=== PATIENT | male | born 1950 | race Caucasian/White ===

== ENCOUNTER 2016-11-05 10:40 | Emergency (ER) | payer MEDICARE ==
[~2016-11-05] VITALS: Ht 170.2 cm; Wt 84.0 kg
[2016-11-05 10:51] VITALS: BP 107/64; PULSE 106; RESP 17; TEMP 98.4; O2SAT 95
--- NOTE | 2016-11-05 10:51 | PD ---
HPI Chief Complaint: fall Time Seen by Provider: 10:47 Travel History International Travel<30 days: No Contact w/Intl Traveler<30days: No Traveled to known affect area: No History of Present Illness HPI 66-year-old male with history of recent Parkinson's disorder diagnosis, presents to the ER today brought in by EMS because he has had multiple recent falls, he states that he fell again today when he got out of bed, got dizzy and states that his leg gave out from underneath him. He states that he had also fallen about a few weeks ago and hit his head but did not get checked out. He denies any chest pains, trouble breathing, vomiting, fevers, or any other issues. He does complain of left elbow pain this time. Modifying Factors: None Associated Signs & Symptoms: Dizziness, falls Risk Factors: Parkinson's disorder PFSH Social History Tobacco Use: No Allergies-Medications (Allergen,Severity, Reaction): Coded Allergies: No Known Allergies (Unverified , 11/05/16) Reported Meds & Prescriptions Reported Meds & Active Scripts Active Reported Vicodin (Hydrocodone-Acetaminophen) 5-300 Mg Tab 1 Tab PO Q6H PRN K-Tab (Potassium Chloride) 10 Meq Tab 10 Meq PO DAILY Atenolol 25 Mg Tab 25 Mg PO BID Doxepin (Doxepin HCl) 25 Mg Cap 25 Mg PO HS Seroquel (Quetiapine Fumarate) 25 Mg Tab 25 Mg PO DAILY Review of Systems Except as stated in HPI: all other systems reviewed are Neg Physical Exam Narrative GENERAL: Well-nourished, well-developed elderly white male patient who is awake , alert, not in acute distress, notable for aphasia which he states old for several years. SKIN: Warm and dry. HEAD: Normocephalic. EYES: No scleral icterus. No injection or drainage. NECK: Supple, trachea midline. CARDIOVASCULAR: Regular rate and rhythm without murmurs, gallops, or rubs. RESPIRATORY: Breath sounds equal bilaterally. No accessory muscle use. GASTROINTESTINAL: Abdomen soft, non-tender, nondistended. Pelvis: Stable and nontender to palpation bilaterally. Nontender range of motion of both hips. MUSCULOSKELETAL: No cyanosis, or edema. BACK: Nontender without obvious deformity. No CVA tenderness. EXTREMITIES: No clubbing, cyanosis, or edema. No joint tenderness, effusion, or edema noted. Data Data Last Documented VS Vital Signs Date Time Temp Pulse Resp B/P Pulse Ox O2 Delivery O2 Flow Rate FiO2 11/05/16 11:29 94 17 91/60 116 11/05/16 11:04 100 Room Air 11/05/16 10:51 98.4 Orders Electrocardiogram (11/05/16 10:47) Complete Blood Count With Diff (11/05/16 10:47) Comprehensive Metabolic Panel (11/05/16 10:47) Magnesium (Mg) (11/05/16 10:47) Ckmb (Isoenzyme) Profile (11/05/16 10:47) Troponin I (11/05/16 10:47) Act Partial Throm Time (Ptt) (11/05/16 10:47) Prothrombin Time / Inr (Pt) (11/05/16 10:47) Urinalysis - C+S If Indicated (11/05/16 10:47) Chest, Single Ap (11/05/16 10:47) Ct Brain W/O Iv Contrast(Rout) (11/05/16 10:47) Ecg Monitoring (11/05/16 10:47) Iv Access Insert/Monitor (11/05/16 10:47) Oximetry (11/05/16 10:47) Orthostatic Vital Signs (11/05/16 10:47) Elbow, Complete (4 Vws) (11/05/16 10:51) CKMB (11/05/16 10:55) CKMB% (11/05/16 10:55) Sodium Chlorid 0.9% 500 Ml Inj (Ns 500 M (11/05/16 11:45) Cath For Specimen (11/05/16 11:55) Labs Laboratory Tests Test 11/05/16 11/05/16 10:55 12:05 White Blood Count 14.4 TH/MM3 Red Blood Count 4.66 MIL/MM3 Hemoglobin 14.0 GM/DL Hematocrit 41.2 % Mean Corpuscular Volume 88.3 FL Mean Corpuscular Hemoglobin 30.1 PG Mean Corpuscular Hemoglobin 34.1 % Concent Red Cell Distribution Width 13.5 % Platelet Count 276 TH/MM3 Mean Platelet Volume 7.6 FL Neutrophils (%) (Auto) 88.5 % Lymphocytes (%) (Auto) 6.4 % Monocytes (%) (Auto) 2.7 % Eosinophils (%) (Auto) 0.8 % Basophils (%) (Auto) 1.6 % Neutrophils # (Auto) 12.8 TH/MM3 Lymphocytes # (Auto) 0.9 TH/MM3 Monocytes # (Auto) 0.4 TH/MM3 Eosinophils # (Auto) 0.1 TH/MM3 Basophils # (Auto) 0.2 TH/MM3 CBC Comment DIFF FINAL Differential Comment Prothrombin Time 11.2 SEC Prothromb Time International 1.0 RATIO Ratio Activated Partial 26.3 SEC Thromboplast Time Sodium Level 136 MEQ/L Potassium Level 4.4 MEQ/L Chloride Level 98 MEQ/L Carbon Dioxide Level 22.0 MEQ/L Anion Gap 16 MEQ/L Blood Urea Nitrogen 16 MG/DL Creatinine 1.10 MG/DL Estimat Glomerular Filtration 67 ML/MIN Rate Random Glucose 73 MG/DL Calcium Level 8.3 MG/DL Magnesium Level 2.1 MG/DL Total Bilirubin 1.4 MG/DL Aspartate Amino Transf 29 U/L (AST/SGOT) Alanine Aminotransferase 24 U/L (ALT/SGPT) Alkaline Phosphatase 64 U/L Total Creatine Kinase 991 U/L Creatine Kinase MB 2.6 NG/ML Creatine Kinase MB % 0.3 % Troponin I 0.02 NG/ML Total Protein 7.3 GM/DL Albumin 3.9 GM/DL Urine Collection Type CLEAN CATCH Urine Color YELLOW Urine Turbidity CLEAR Urine pH 5.5 Urine Specific Salters 1.012 Urine Protein NEG mg/dL Urine Glucose (UA) NEG mg/dL Urine Ketones 40 mg/dL Urine Occult Blood SMALL Urine Nitrite NEG Urine Bilirubin NEG Urine Leukocyte Esterase NEG Urine RBC 10-14 /hpf Urine Squamous Epithelial 0-5 /hpf Cells Microscopic Urinalysis Comment CULT NOT INDICATED Urine Collection Time 12:05 [facility] Medical Decision Making Medical Screen Exam Complete: Yes Emergency Medical Condition: Yes Medical Record Reviewed: Yes Interpretation(s) EKG shows sinus tachycardia at a rate of 100 bpm with no signs of acute ST-T changes. Laboratory Tests Test 11/05/16 11/05/16 10:55 12:05 White Blood Count 14.4 TH/MM3 (4.0-11.0) Neutrophils (%) (Auto) 88.5 % (16.0-70.0) Lymphocytes (%) (Auto) 6.4 % (9.0-44.0) Neutrophils # (Auto) 12.8 TH/MM3 (1.8-7.7) Lymphocytes # (Auto) 0.9 TH/MM3 (1.0-4.8) Anion Gap 16 MEQ/L (5-15) Estimat Glomerular Filtration 67 ML/MIN (>89) Rate Random Glucose 73 MG/DL (74-106) Calcium Level 8.3 MG/DL (8.5-10.1) Total Bilirubin 1.4 MG/DL (0.2-1.0) Total Creatine Kinase 991 U/L (39-308) Urine Ketones 40 mg/dL (NEG) Urine Occult Blood SMALL (NEG) Urine RBC 10-14 /hpf (0-3) Last 24 hours Impressions Elbow X-Ray 11/05/16 1051 Signed Impressions: Service Date/Time: Saturday, November 05, 2016 11:16 - CONCLUSION: Soft tissue swelling without fracture. Surinder Torres MD Head CT 11/05/16 1047 Signed Impressions: Service Date/Time: Saturday, November 05, 2016 11:06 - CONCLUSION: No acute intracranial disease. Surinder Torres MD Chest X-Ray 11/05/16 1047 Signed Impressions: Service Date/Time: Saturday, November 05, 2016 10:59 - CONCLUSION: 1. Diminished lung volumes and bibasilar densities likely atelectasis. Surinder Torres MD Differential Diagnosis Fall, dizzinessorthostasis versus dysrhythmias versus sepsis versus dehydration versus acute intracranial injuries Narrative Course X-rays and CAT scans did not reveal any signs of acute bony injuries or acute intracranial injuries. Lab work did not show significant dehydration or acute metabolic issues. He does not appear to have any signs of infection. On further questioning, patient had stated to nurse that he had taken his Vicodin, doxepin, and Seroquel all the same time this morning. While being observed in the ER, he does appear to be looking more alert during observation. On reevaluation at 12:40 PM, he states he feels well and vital signs are stable. He was able to ambulate around the ER without issues. At this point, I suspect that some of the problems may be due to medication side effects. Patient states that he has been trying to cut down on his Vicodin on his own. At this point, I would caution him against taking all 3 medications at the same time and have recommended that he follows up with primary care physician regarding reevaluation of his medications due to fall risk. I also would advise him not to drive while this is giving sorted out. Return for any worsening in dizziness , or new issues as needed. The plan has been discussed with him and he states understanding. Diagnosis Primary Impression: Dizziness Additional Impression: Frequent falls Additional Instructions: Be cautious about driving or operating heavy machinery. Talk to your primary care physician regarding her medications. You may not want to take Vicodin, doxepin, and Seroquel all the same time since this may increase his side effect potentials. Return for any further issues with dizziness, falls, and as needed. Disposition: 01 DISCHARGE HOME Condition: Stable Saravanan Marsh MD Nov 05, 2016 10:51
[2016-11-05 11:04] VITALS: RESP 17; O2SAT 95
[2016-11-05 11:08] LABS: AUTOMATED NEUTROPHIL # 12.8 TH/MM3 (1.8-7.7); BASOPHIL # 0.2 TH/MM3 (0-0.2); BASOPHIL % 1.6 % (0.0-2.0); EOSINOPHIL # 0.1 TH/MM3 (0-0.4); EOSINOPHIL % 0.8 % (0.0-4.0); HEMATOCRIT 41.2 % (39.0-51.0); LYMPH % 6.4 % (9.0-44.0); LYMPHOCYTE # 0.9 TH/MM3 (1.0-4.8); MEAN CELL VOLUME 88.3 FL (80.0-100.0); MEAN CORPUSCULAR HEMOGLOBIN 30.1 PG (27.0-34.0); MEAN CORPUSCULAR HGB CONC 34.1 % (32.0-36.0); MONO % 2.7 % (0.0-8.0); NEUT % 88.5 % (16.0-70.0); PLATELET COUNT 276 TH/MM3 (150-450); RED BLOOD COUNT 4.66 MIL/MM3 (4.50-5.90); RED CELL DISTRIBUTION WIDTH 13.5 % (11.6-17.2); WHITE BLOOD COUNT 14.4 TH/MM3 (4.0-11.0)
--- NOTE | 2016-11-05 11:08 | RADHPO ---
EXAM DATE/TIME: 11/05/2016 10:59 [facility] COMPARISON: No previous studies available for comparison. INDICATIONS : Palpitations, falling MEDICAL HISTORY : None. SURGICAL HISTORY : None. ENCOUNTER: Initial ACUITY: 1 day PAIN SCORE: 0/10 LOCATION: Bilateral chest FINDINGS: A single view of the chest demonstrates diminished lung volumes. Bibasilar densities. Heart normal in size. Osseous structures intact. CONCLUSION: 1. Diminished lung volumes and bibasilar densities likely atelectasis. Surinder Torres MD on November 05, 2016 at 11:05 Board Certified Radiologist. This report was verified electronically.
[2016-11-05 11:11] LABS: HEMO FLAGS DIFF FINAL
[2016-11-05] MEDS ORDERED: K-TA10TA PO (11:14)
[2016-11-05] MEDS ORDERED: HYDR-3111 PO (11:14)
[2016-11-05] MEDS ORDERED: ATEN25TA PO (11:14)
[2016-11-05] MEDS ORDERED: DOXE25CA2 PO (11:14)
[2016-11-05] MEDS ORDERED: SERO25TA PO (11:14)
[2016-11-05 11:17] LABS: CHLORIDE 98 MEQ/L (98-107); POTASSIUM 4.4 MEQ/L (3.5-5.1); SODIUM (NA) 136 MEQ/L (136-145)
[2016-11-05 11:21] LABS: ANION GAP 16 MEQ/L (5-15); APTT (PATIENT) 26.3 SEC (24.3-30.1); BLOOD UREA NITROGEN 16 MG/DL (7-18); MAGNESIUM 2.1 MG/DL (1.5-2.5); PROTHROMBIN TIME - PATIENT 11.2 SEC (9.8-11.6)
[2016-11-05 11:24] LABS: ALT (GPT) 24 U/L (12-78); AST (GOT) 29 U/L (15-37); GLOMERULAR FILTRATION RATE 67 ML/MIN (>89)
[2016-11-05 11:25] LABS: TOTAL BILIRUBIN ADULT 1.4 MG/DL (0.2-1.0)
[2016-11-05 11:27] LABS: ALKALINE PHOSPHATASE 64 U/L (45-117)
[2016-11-05 11:29] VITALS: BP 91/60; RESP 17
--- NOTE | 2016-11-05 11:35 | RADHPO ---
EXAM DATE/TIME: 11/05/2016 11:06 [facility] COMPARISON: No previous studies available for comparison. INDICATIONS : Fall, dizziness today. RADIATION DOSE: 63.70 CTDIvol (mGy) MEDICAL HISTORY : unobtainable SURGICAL HISTORY : unobtainable ENCOUNTER: Initial ACUITY: 1 day PAIN SCALE: 4/10 LOCATION: Bilateral head TECHNIQUE: Multiple contiguous axial images were obtained of the head. Using automated exposure control and adj ustment of the mA and/or kV according to patient size, radiation dose was kept as low as reasonably a chievable to obtain optimal diagnostic quality images. FINDINGS: CEREBRUM: The ventricles are normal for age. No evidence of midline shift, mass lesion, hemorrhage or acute in farction. No extra-axial fluid collections are seen. POSTERIOR FOSSA: The cerebellum and brainstem are intact. The 4th ventricle is midline. The cerebellopontine angle i s unremarkable. EXTRACRANIAL: The visualized portion of the orbits is intact. SKULL: The calvaria is intact. No evidence of skull fracture. CONCLUSION: No acute intracranial disease. Surinder Torres MD on November 05, 2016 at 11:33 Board Certified Radiologist. This report was verified electronically.
--- NOTE | 2016-11-05 11:36 | RADHPO ---
EXAM DATE/TIME: 11/05/2016 11:16 [facility] COMPARISON: No previous studies available for comparison. INDICATIONS : Left elbow pain post fall. MEDICAL HISTORY : None. SURGICAL HISTORY : None. ENCOUNTER: Initial ACUITY: 1 day PAIN SCORE: 10 LOCATION: Left elbow. FINDINGS: Multiple view examination of the left elbow demonstrates soft tissue swelling without joint effusion, or fracture. The osseous structures are in normal alignment. Mild degenerative changes. Bony minera lization is normal. CONCLUSION: Soft tissue swelling without fracture. Surinder Torres MD on November 05, 2016 at 11:34 Board Certified Radiologist. This report was verified electronically.
[2016-11-05 11:38] LABS: CREATINE KINASE 991 U/L (39-308)
[2016-11-05] MEDS ORDERED: SODIUM CHLORID 0.9% 500 ML INJ 500 ML IV ONE (11:45)
[2016-11-05 11:51] LABS: CKMB 2.6 NG/ML (0.5-3.6)
[2016-11-05 12:11] LABS: BLOOD, URINE SMALL (NEG); GLUCOSE,URINE NEG (NEG); KETONE, URINE 40 mg/dL (NEG); NITRITE,URINE NEG (NEG); PH, URINE 5.5 (5.0-8.5)
[2016-11-05 12:25] LABS: COMMENT (UR) CULT NOT INDICATED; CULTURE IF INDICATED CULT NOT INDICATED; METHOD OF COLLECTION CLEAN CATCH; SQUAMOUS EPITHELIAL CELL URINE 0-5 /hpf (0-5); URINE COLOR YELLOW (YELLW/STRAW)
[2016-11-05 13:04] VITALS: BP 114/65
--- NOTE | 2016-11-06 12:52 | EKG ---
Date Performed: 11/05/2016 Time Performed: 10:51:24 PTAGE: 66 years EKG: Sinus tachycardia Possible left atrial abnormality Right bundle branch block Low QRS voltag es in precordial leads Abnormal ECG NO PREVIOUS TRACING DOCTOR: Wisam Saravia Interpretating Date/Time 11/06/2016 12:49:27
== END 2016-11-05 13:05 | disposition home or self-care (01) ==
LOC: PHED 10:40
DX: R42 Dizziness and giddiness (principal); M25.522 Pain in left elbow; R00.0 Tachycardia, unspecified; R94.31 Abnormal electrocardiogram [ECG] [EKG]; G20 Parkinson's disease; Z79.899 Other long term (current) drug therapy; Z91.81 History of falling
CPT/HCPCS: 70450; 71010; 73080; 80053; 81001; 82550; 82552; 83735; 84484; 85025; 85610; 85730; 93005; 96360; 99285; J7040; P9612

== ENCOUNTER 2016-11-30 13:19 | Emergency (ER) | payer MEDICARE ==
[~2016-11-30] VITALS: Ht 170.2 cm; Wt 81.5 kg
[~2016-11-30 13:19] MED LIST: ATEN25TA PO; DOXE25CA2 PO; HYDR-3111 PO; K-TA10TA PO; SERO25TA PO
[2016-11-30 13:24] VITALS: BP 116/77; PULSE 103; RESP 18; TEMP 98.8; O2SAT 96
[2016-11-30] MEDS ORDERED: ACETAMINOPHEN/HYDROcodone 325 MG/5 MG TAB PO ONE (13:45)
[2016-11-30 14:30] VITALS: BP 110/71; PULSE 93; RESP 18; O2SAT 97
--- NOTE | 2016-11-30 14:39 | PD ---
HPI Chief Complaint: Fall Time Seen by Provider: 13:37 Travel History International Travel<30 days: No Contact w/Intl Traveler<30days: No Traveled to known affect area: No History of Present Illness HPI Patient 66-year-old male presents emergency department for evaluation of fall at home. Patient has history of traumatic brain injury leaving dysphasia as well as and steady gait. Patient states he tripped and fell approximately an hour and a half to 2 hours prior to arrival landing on his knees and had been on the floor. He states "I fell and I couldn't get up just like the commercial said". Patient complains of bilateral groin pain. He states he has had trouble walking since the event happened. Denies any chest pain shortness of breath headache syncope. Patient's history is minimally limited by the fact that he is dysphasia. PFSH Past Medical History Cerebrovascular Accident: Yes Diminished Hearing: No Hypertension: Yes Parkinson's Disease: Yes (POSSIBLY PER PATIENT) Tetanus Vaccination: < 5 Years Influenza Vaccination: No Social History Alcohol Use: No Tobacco Use: No Substance Use: No Allergies-Medications (Allergen,Severity, Reaction): Coded Allergies: No Known Allergies (Unverified , 11/30/16) Reported Meds & Prescriptions Reported Meds & Active Scripts Active Folding Paddle Walker/5" (Misc. Devices) 1 Mis Mis Units Reported Vicodin (Hydrocodone-Acetaminophen) 5-300 Mg Tab 1 Tab PO Q6H PRN K-Tab (Potassium Chloride) 10 Meq Tab 10 Meq PO DAILY Atenolol 25 Mg Tab 25 Mg PO BID Doxepin (Doxepin HCl) 25 Mg Cap 25 Mg PO HS Seroquel (Quetiapine Fumarate) 25 Mg Tab 25 Mg PO DAILY Review of Systems Except as stated in HPI: all other systems reviewed are Neg Physical Exam Narrative GENERAL: Well-developed well-nourished no apparent distress SKIN: Warm and dry. HEAD: Atraumatic. Normocephalic. No zuluaga signs no raccoons eyes EYES: Pupils equal and round. No scleral icterus. No injection or drainage. ENT: No nasal bleeding or discharge. Mucous membranes pink and moist. TMs clear bilaterally. NECK: Trachea midline. No JVD. CARDIOVASCULAR: Regular rate and rhythm. No murmur appreciated. RESPIRATORY: No accessory muscle use. Clear to auscultation. Breath sounds equal bilaterally. GASTROINTESTINAL: Abdomen soft, non-tender, nondistended. Hepatic and splenic margins not palpable. MUSCULOSKELETAL: No obvious deformities. No clubbing. No cyanosis. No edema. Lower extremities: There are some minor abrasions to bilateral knees and the anterior surface. No effusion no tenderness no joint laxity. Pulses motor and sensory are intact bilaterally. Upper extremities: Atraumatic, pulses motor and sensory intact. Axial skeleton: No CT or L-spine tenderness. NEUROLOGICAL: Awake and alert. There is a small right-sided facial droop which patient states is chronic. He will follow commands in all 4 extremities. He is fairly dysphagia but with some effort he can understand him. Is alert and awake and oriented. Ambulates with some imbalance. PSYCHIATRIC: Appropriate mood and affect; insight and judgment normal. Data Data Last Documented VS Vital Signs Date Time Temp Pulse Resp B/P Pulse Ox O2 Delivery O2 Flow Rate FiO2 11/30/16 14:30 93 18 110/71 97 Room Air 11/30/16 13:24 98.8 Orders Knee, Complete (4vws) (11/30/16 ) Hip, Uni(Ap&Lat) W Ap Pelvis (11/30/16 ) Hip, Uni(Ap&Lat) Wo Ap Pelvis (11/30/16 ) Knee, Complete (4vws) (11/30/16 ) Acetamin-Hydrocod 325-5 Mg ([place] 5-325 (11/30/16 13:45) Cath For Specimen (11/30/16 15:33) MDM Medical Decision Making Medical Screen Exam Complete: Yes Emergency Medical Condition: Yes Differential Diagnosis Falls, poor social circumstance, history traumatic brain injury, knee injury, knee fracture, hip fracture, hip injury. Narrative Course Patient is a 66-year-old male presents emergency department after a fall to his knees. He has some bilateral knee abrasions. Complains of bilateral groin pain. He appears well, dysphasic but is able to give his entire history. X- rays obtained of bilateral knees and hips as well as pelvis all of which are negative. Had extensive conversation with his daughter who is in [place]. Patient is from [place] and drove down here by himself a week or 2 ago. Discussed his daughter I have some concerns about the patient driving home and she has agreed. She is trying to arrange for him to fly home tomorrow and have his car shipped up. Discussed with her and the patient that needs to consider being admitted for placement and daughter agrees that ultimately she'll he will probably need some placement but would rather him be placed in [place] where he knows people. He is adamantly objecting to admission at this time and given that he can ambulate I think that he can make his own medical decisions. He is not greatly disabled and does not meet criteria for holding him involuntarily. Discussed with him safely making at home and he U would like to pay for [facility] to come and get him. This is being arranged. I will arrange for him to have a walker either provided here. We have for a prescription to go home with. I did discuss with the patient discussion I had with his daughter and he is agreed to fly back. Both the patient's nurse as well as the pillowcase cutter have also discussed with the patient and we have made arrangements to the best of our ability to maintain his safety. Still after discussing his safety with the patient he still adamantly would like to go active his hotel room. Patient did have some problems paying in the emergency department and was straight catheter relieve his bladder. He was able to demonstrate urination prior to discharge. Diagnosis Primary Impression: Groin pain Qualified Code: R10.30 - Groin pain, unspecified laterality Additional Impression: Frequent falls Med/Other Pt SpecificInfo: Prescription(s) given Scripts Misc. Devices (Folding Paddle Walker/5")1 Mis Mis #1 UNITS Ref 0 Prov:Atif Bedolla MD 11/30/16 Disposition: 01 DISCHARGE HOME Condition: Stable Atif Bedolla MD Nov 30, 2016 14:39
--- NOTE | 2016-11-30 15:26 | RADHPO ---
EXAM DATE/TIME: 11/30/2016 14:31 [facility] COMPARISON: No previous studies available for comparison. INDICATIONS : Right hip pain; fell today. MEDICAL HISTORY : None. SURGICAL HISTORY : None. ENCOUNTER: Initial ACUITY: 1 day PAIN SCORE: 7/10 LOCATION: Right hip FINDINGS: Examination of the right hip was performed with AP Pelvis. The primary and secondary trabecular bethany olvin of the femoral neck is intact. The hip joint is of normal width without significant sclerosis or bony hypertrophy. The acetabulum is grossly intact. CONCLUSION: Intact pelvis and right hip. Elgin Casillas MD on November 30, 2016 at 15:24 Board Certified Radiologist. This report was verified electronically.
--- NOTE | 2016-11-30 15:28 | RADHPO ---
EXAM DATE/TIME: 11/30/2016 14:34 [facility] COMPARISON: No previous studies available for comparison. INDICATIONS : Left hip pain; fell today. MEDICAL HISTORY : None. SURGICAL HISTORY : None. ENCOUNTER: Initial ACUITY: 1 day PAIN SCORE: 7/10 LOCATION: Left hip FINDINGS: A two view examination of the left hip was performed. The primary and secondary trabecular pattern o f the femoral neck is intact. The hip joint is of normal width without significant sclerosis or bony hypertrophy. The acetabulum is grossly intact. CONCLUSION: No fracture or subluxation of the left hip. Elgin Casillas MD on November 30, 2016 at 15:26 Board Certified Radiologist. This report was verified electronically.
--- NOTE | 2016-11-30 15:30 | RADHPO ---
EXAM DATE/TIME: 11/30/2016 14:37 [facility] COMPARISON: No previous studies available for comparison. INDICATIONS : Right knee pain; fell today. MEDICAL HISTORY : None. SURGICAL HISTORY : None. ENCOUNTER: Initial ACUITY: 1 day PAIN SCORE: 7/10 LOCATION: Right knee FINDINGS: Bones of the right knee are intact. No subluxation. There is mild osteoarthritis of the medial and pa tellofemoral compartments. Very small joint effusion Mild prepatellar soft tissue swelling. I believe the patellar tendon is thickened. CONCLUSION: 1. No fracture or subluxation of the right knee. 2. Nonspecific prepatellar soft tissue swelling and thickening of the patellar tendon. 3. Mild osteoarthritis. Elgin Casillas MD on November 30, 2016 at 15:27 Board Certified Radiologist. This report was verified electronically.
--- NOTE | 2016-11-30 15:32 | RADHPO ---
EXAM DATE/TIME: 11/30/2016 14:40 [facility] COMPARISON: No previous studies available for comparison. INDICATIONS : Left knee pain; fell today. MEDICAL HISTORY : None. SURGICAL HISTORY : None. ENCOUNTER: Initial ACUITY: 1 day PAIN SCORE: 7/10 LOCATION: Left knee. FINDINGS: No fracture or subluxation seen in the left knee. No definite joint effusion. Mild medial and patellofemoral compartment joint space narrowing. Lateral view suggests thickening of the patellar tendon, nonspecific but presumably chronic tendinosi s. CONCLUSION: 1. No fracture or subluxation of the left knee. 2. Mild osteoarthritis. 3. Nonspecific thickening of the patellar tendon. Elgin Casillas MD on November 30, 2016 at 15:29 Board Certified Radiologist. This report was verified electronically.
[2016-11-30] MEDS ORDERED: [UNRECOGNIZED DRUG - CODE] (15:47)
== END 2016-11-30 17:08 | disposition home or self-care (01) ==
LOC: PHED 13:19
DX: R10.32 Left lower quadrant pain (principal); R10.31 Right lower quadrant pain; S80.212A Abrasion, left knee, initial encounter; S80.211A Abrasion, right knee, initial encounter; I10 Essential (primary) hypertension; G20 Parkinson's disease; W01.0XXA Fall on same level from slipping, tripping and stumbling without subsequent striking against object, initial encounter; Y93.89 Activity, other specified; Y92.009 Unspecified place in unspecified non-institutional (private) residence as the place of occurrence of the external cause; Z91.81 History of falling
CPT/HCPCS: 73502; 73564; 99284; P9612